=== PATIENT | female | born 1955 | race Caucasian/White ===

== ENCOUNTER → 2018-09-26 | Day surgery (SDC) | payer OTHER ==
[~2018-09-26] MED LIST: AZEL137S3 NS; IBUP400T18 PO; IV RINGERS,LACTATED 1000ML 1,000 ML IV SCH; LATA2.5D3 OP; LIDOCAINE 1% PF 2 ML VIAL. ID PRN; LIDOCAINE 2% PF 5 ML VIAL. ONE; MIDAZOLAM HCL/PF 2 MG/2 ML VIAL. IV PRN; PROPOFOL 40 ML IV ONE; fentaNYL PF VIAL 100 MCG/2 ML VIAL IV PRN
[2018-09-26 09:02] VITALS: BP 120/70
== END | disposition home or self-care (01) ==
LOC: SURG 07:11
PROVIDERS: ATTEND Internal Medicine Gastroenterology
DX: Z12.11 Encounter for screening for malignant neoplasm of colon (principal); K57.30 Diverticulosis of large intestine without perforation or abscess without bleeding; K64.0 First degree hemorrhoids; Z79.899 Other long term (current) drug therapy; M19.90 Unspecified osteoarthritis, unspecified site; H40.9 Unspecified glaucoma; Z98.890 Other specified postprocedural states; Z86.010 Personal history of colon polyps; Z87.19 Personal history of other diseases of the digestive system
CPT/HCPCS: 45378; J2001; J2704

== ENCOUNTER → 2019-01-28 | Outpatient (CLI) | payer OTHER ==
[2018-09-26 09:02] VITALS: BP 120/70
[~2019-01-28] MED LIST changes: +ASCO1TAB14 PO; -IV RINGERS,LACTATED 1000ML 1,000 ML IV SCH; +LIDO700A21 TP; -LIDOCAINE 1% PF 2 ML VIAL. ID PRN; -LIDOCAINE 2% PF 5 ML VIAL. ONE; -MIDAZOLAM HCL/PF 2 MG/2 ML VIAL. IV PRN; -PROPOFOL 40 ML IV ONE; -fentaNYL PF VIAL 100 MCG/2 ML VIAL IV PRN
[2019-01-28 12:31] LABS: BASO # 0.1 x10^3/uL (0.0-0.2); BASO % 1 % (0-3); EOS # 0.1 x10^3/uL (0.0-0.7); EOS % 1 % (0-3); HEMATOCRIT 40.6 % (36.0-47.0); HEMOGLOBIN 13.8 g/dL (12.0-15.5); LYMPH # 1.9 x10^3/uL (1.0-4.8); LYMPH % 33 % (24-48); MEAN CORPUSCULAR HEMOGLOBIN 30 pg (25-35); MEAN CORPUSCULAR HGB CONC 34 g/dL (31-37); MEAN CORPUSCULAR VOLUME 89 fL (79-100); MONO # 0.4 x10^3/uL (0.0-1.1); MONO % 6 % (0-9); NEUT # 3.4 x10^3/uL (1.8-7.7); NEUT % 59 % (31-73); PLATELET COUNT 263 x10^3/uL (140-400); RED BLOOD COUNT 4.56 x10^6/uL (3.50-5.40); RED CELL DISTRIBUTION WIDTH 13.5 % (11.5-14.5); WHITE BLOOD COUNT 5.7 x10^3/uL (4.0-11.0)
[2019-01-28 12:54] LABS: CALCIUM 9.5 mg/dL (8.5-10.1); CREATININE 0.8 mg/dL (0.6-1.0); GFR 72.9; POTASSIUM 4.1 mmol/L (3.5-5.1); TOTAL BILIRUBIN 0.8 mg/dL (0.2-1.0)
== END | disposition home or self-care (01) ==
LOC: SURGPAT 11:26
PROVIDERS: ATTEND Surgery
DX: Z01.818 Encounter for other preprocedural examination (principal); K80.20 Calculus of gallbladder without cholecystitis without obstruction
CPT/HCPCS: 36415; 80048; 82040; 82247; 85025

== ENCOUNTER → 2019-02-04 | Day surgery (SDC) | payer OTHER ==
[~2019-02-04] MED LIST changes: +BUPIVACAINE-EPI 0.5%-1:200000 MPF 30 ML VIAL. INJ ONE; +DEXAMETHASONE SOD PHOS 4 MG/ML VIAL ONE; +DOCU100T11 PO; +GLUCAGON,HUMAN RECOMBINANT 1 MG/ML VIAL. ONE; +GLYCOPYRROLATE 1 MG/5 ML VIAL. ONE; +HYDR-3164 PO; +HYDROcodone/APAP 5/325MG 1 TAB TABLET PO ONE; +HYDROmorphone 2 MG/ML VIAL IV PRN; +IOHEXOL 300 MG/ML 50 ML VIAL. ONE; +IV RINGERS,LACTATED 1000ML 1,000 ML IV SCH; +KETOROLAC 30 MG/ML INJ FOR OR. INJ ONE; +LIDOCAINE 1% PF 2 ML VIAL. ID PRN; +LIDOCAINE 2% PF 5 ML VIAL. ONE; +MIDAZOLAM HCL/PF 2 MG/2 ML VIAL. ONE; +MORPHINE SULFATE 2 MG/ML VIAL. IV PRN; +NEOSTIGMINE METHYLSULFATE 5 MG/5 ML SYRINGE. ONE; +ONDANSETRON PF 4 MG/2 ML VIAL. IV PRN; +ONDANSETRON PF 4 MG/2 ML VIAL. ONE; +PROCHLORPERAZINE 10 MG/2 ML VIAL. IV PRN; +PROPOFOL 20 ML IV ONE; +ROCURONIUM 50 MG/5 ML VIAL. ONE; +SEVOFLURANE 61 TO 120 MINUTES. IH ONE; +SURGICEL HEMOSTAT 4X8 EACH. ONE; +fentaNYL PF VIAL 100 MCG/2 ML VIAL IV PRN; +fentaNYL PF VIAL 100 MCG/2 ML VIAL ONE
--- NOTE | 2019-02-04 08:37 | DISCH ---
DISCHARGE INSTRUCTIONS Condition on Discharge Condition on Discharge: Stable Activity After Discharge Activity Instructions for Disc: Resume previous activity, Activity as tolerated Lifting Instructions after Dis: No heavy lifting Driving Instructions after Dis: Do not drive (2-3 days) Diet after Discharge Diet after Discharge: Regular Wound Incision Care Wound/Incision Care: Ice to area for comfort Other wound/incision instructi: october showsaturday Follow-Up Follow up with: Juan R next week JEANCARLOS SOTO MD Feb 04, 2019 08:36
--- NOTE | 2019-02-04 08:47 | PDOC ---
BRIEF OPERATIVE NOTE Date: Feb 04, 2019 Pre-Op Diagnosis symptomatic cholelithiasis Post-Op Diagnosis same Procedure Performed l/s cholecystectomy with cholangiograms Surgeon Juan R Computer Scientist Blanquita COLLINS Anesthesia Type: General Blood Loss 10cc IV Fluid 600cc Specimens Obtained GB Findings supple GB, normal grams Complications none Operative Note Wk # [id number] JEANCARLOS SOTO MD Feb 04, 2019 08:47
--- NOTE | 2019-02-04 08:51 | RAD ---
Intraoperative cholangiogram fluoroscopy 02/04/2019 8:00 AM INDICATION: Status post cholecystectomy. COMPARISON: Ultrasound abdomen September 10, 2018 TECHNIQUE: 3 fluoroscopic spot views are provided. Fluoroscopy time: 0.16 minutes FINDINGS: Fluoroscopy is provided for intraoperative use. There is opacification of the cystic duct, intrahepatic biliary tree and common bile duct with contrast is identified within the duodenum. No filling defects are identified at the common bile duct. No definite stricture is visualized. IMPRESSION: 1. Intraoperative cholangiogram utilizing fluoroscopy. 2. Please refer to the separate operative report for further details. Electronically signed by: Mary Cruz MD (02/04/2019 8:48 AM) [id number]
--- NOTE | 2019-02-04 09:00 | OP ---
DATE OF SURGERY: 02/04/2019 PREOPERATIVE DIAGNOSIS: Symptomatic cholelithiasis. POSTOPERATIVE DIAGNOSIS: Symptomatic cholelithiasis. PROCEDURE: Laparoscopic cholecystectomy with cholangiogram. SURGEON: Chauncey Soto MD BDC MANAGER: DENNIS Amaya. ANESTHESIA: General endotracheal. ESTIMATED BLOOD LOSS: 10 mL. INTRAVENOUS FLUIDS: 600 mL. INDICATIONS: The patient is a 63-year-old with a large stone and right flank pain thought to be attributed to her renal stones. Discovery of the gallstones bring her for cholecystectomy. OPERATIVE FINDINGS: The liver was smooth and sharp. The gallbladder was supple with some omental adhesions. Visual inspection of the remainder of the abdomen failed to reveal obvious abnormalities. DESCRIPTION OF PROCEDURE: The patient brought to the operating suite, given a general endotracheal anesthetic and the abdomen was prepped and draped in usual sterile fashion. A supraumbilical incision was infiltrated with local anesthetic, incised and a 5 mm Visiport used to safely gain access into the abdominal cavity, taking care to avoid injury to abdominal contents. Pneumoperitoneum established. Camera inserted. Inspection carried out with results as noted above. With the table in reverse Trendelenburg rolled to the left, the epigastric and midclavicular ports were placed under direct vision. The lateral port location used for an "alligator" grasper. Gallbladder retracted superolaterally, and with careful blunt and cautery dissection, adhesions were taken down to expose the neck of the gallbladder, taking care to avoid injury to the adjacent bowel. The cystic duct and cystic artery were identified. The duct was clipped on the gallbladder side. Cholangiograms were made. These were normal. In light of this, the catheter was removed. The cystic duct was clipped x 3 and divided, taking care to avoid injury or compromise the common duct. An anterior and posterior branch of the cystic artery were clipped and divided and gallbladder freed from the bed with cautery dissection and placed in an EndoCatch bag. Good hemostasis was present in the fossa and no obvious bile leak was seen. Table returned to level. Gallbladder delivered through the epigastric incision. Epigastric incision was closed with 0 Vicryl suture. At 6 cm intraabdominal pressure, no bleeding from the epigastric closure or from the midclavicular port site after its removal or from the location of the alligator. Abdomen decompressed. Cam removed. No bleeding seen. Skin incisions closed with subcuticular 4-0 Monocryl. Steri-Strips and sterile dressings applied. The patient awakened from her anesthetic and taken to the recovery room in satisfactory condition. CHAUNCEY SOTO MD DR: GORDON/macy JOB#: [id number] / [id number]
[2019-02-04 10:15] VITALS: BP 136/72
--- NOTE | 2019-02-06 19:06 | PATHOLOGY ---
[facility] Accession Number: [id number] . 01 Material submitted: . gallbladder - GALLBLADDER AND CONTENTS . 01 Clinical history: . Gallstones . 02 Diagnosis: Gallbladder, cholecystectomy: - Cholelithiasis. - Cholesterolosis, focal. - Chronic cholecystitis. LBQ/02/06/2019 . 02 Comment: There is no evidence of malignancy. (JPM/db; 02/06/2019) . 02 Electronically signed: . Jan Chamberlain MD, Pathologist NPI- [id number] . 01 Gross description: . The specimen is received in formalin, labeled "Riya Beymark, gallbladder and contents". Received is an intact gallbladder measuring 7.4 x 2.7 x 2.4 cm in greatest dimensions displaying a pink-lee serosal surface. Opening the specimen reveals a velvety, bile-stained mucosa with a gallbladder wall thickness of 0.1 cm. A single black, granular calculus is present, and no masses or lesions are noted grossly. Mold Checker sections, to include the proximal margin, are submitted in cassette A1. (CAA; 02/05/2019) QAC/QAC . 02 Pathologist provided ICD-10: K80.10, K82.4 . 02 CPT . 275941 Specimen Comment: A courtesy copy of this report has been sent to Specimen Comment: [phone], . Specimen Comment: Report sent to / DR GONZALEZ Performed at: 01 [facility] [address], [place], [place] [id number] MD Davin Silveira MD Phone: [phone] Performed at: 02 [facility] [address], [place] [id number] MD Jan Chamberlain MD Phone: [phone]
== END ==
LOC: SURG 06:34
PROVIDERS: ATTEND Surgery
DX: K80.10 Calculus of gallbladder with chronic cholecystitis without obstruction (principal); H40.9 Unspecified glaucoma; Z98.890 Other specified postprocedural states; Z87.442 Personal history of urinary calculi
CPT/HCPCS: 47563; 74300; 88304; A7015; J0696; J1100; J2001; J2250; J2405; J2704; J2710; J3010; J3490; J7030; Q9967; J1610; J1885